=== PATIENT | male | born 1980 | race Caucasian/White ===

== ENCOUNTER 2020-07-19 16:36 | Emergency (ER) | payer SELFPAY ==
[~2020-07-19] VITALS: Ht 175.3 cm; Wt 136.3 kg
[2020-07-19 16:48] VITALS: BP 133/78
[2020-07-19] MEDS ORDERED: NAPR-514 PO (17:10)
[2020-07-19] MEDS ORDERED: AMOX500T PO (17:10)
--- NOTE | 2020-07-19 17:11 | PHYS DOC ---
Past History Past Medical History: Other Additional Past Medical Histor: HEART MURMUR Past Surgical History: No Surgical History Alcohol Use: Occasionally Adult General Chief Complaint Chief Complaint: DENTAL PROBLEM HPI HPI Patient is a 39-year-old male patient presenting to the ED today complaining of 5 out of 10 throbbing left upper gum dental pain, symptoms for 2 days. Patient reports history of dental infections. He states he is supposed to have surgical removal of the left lower wisdom tooth but he does not have medical or dental insurance and is unable to follow-up. He is requesting antibiotics. He states his been trying [id number] remedies with no relief. Review of Systems Review of Systems Constitutional: Denies fever or chills [] Eyes: Denies change in visual acuity, redness, or eye pain [] HENT: Reports left upper gum dental pain Musculoskeletal: Denies back pain or joint pain [] Integument: Denies rash or skin lesions [] Neurologic: Denies headache, focal weakness or sensory changes [] All other systems were reviewed and found to be within normal limits, except as documented in this note. Allergies Allergies Allergies Coded Allergies Type Severity Reaction Last Updated Verified No Known Drug Allergies 07/19/20 No Physical Exam Physical Exam Constitutional: Well developed, well nourished, no acute distress, non-toxic appearance. [] HENT: Normocephalic, atraumatic, bilateral external ears normal, oropharynx moist, no oral exudates, nose normal. [] Left wisdom tooth is decayed, no gum erythema, no swelling Skin: Warm, dry, no erythema, no rash. [] Back: No tenderness, no CVA tenderness. [] Extremities: No tenderness, no cyanosis, no clubbing, ROM intact, no edema. [] Neurologic: Alert and oriented X 3, normal motor function, normal sensory function, no focal deficits noted. [] Psychologic: Affect normal, judgement normal, mood normal. [] Current Patient Data Vital Signs Vital Signs Date Time Temp Pulse Resp B/P (MAP) Pulse Ox O2 Delivery O2 Flow Rate FiO2 07/19/20 16:48 97.4 64 18 133/78 (96) 97 Room Air EKG EKG [] Radiology/Procedures Radiology/Procedures [] Heart Score Risk Factors: Risk Factors: DM, Current or recent (<one month) smoker, HTN, HLP, family history of CAD, obesity. Risk Scores: Risk Factors: DM, Current or recent (<one month) smoker, HTN, HLP, family history of CAD, obesity. Course & Med Decision Making Course & Med Decision Making Pertinent Labs and Imaging studies reviewed. (See chart for details) This is a 39-year-old male patient with infected left wisdom tooth. He is supposed to have it surgically removed but does not have dental insurance to enable him follow-up with an oral surgeon. Discharged on amoxicillin and naproxen. Dragon Disclaimer Dragon Disclaimer This electronic medical record was generated, in whole or in part, using a voice recognition dictation system. Departure Departure: Impression: Primary Impression: Dental infection Disposition: DC HOME SELF CARE/HOMELESS Condition: STABLE Referrals: PCP,BERNARDO (PCP) follow up with your dentist in 1 week Patient Instructions: Dental Caries Additional Instructions: You have dental infection. Take the prescribed antibiotics until completed. Follow-up with your dentist in 1 week Scripts Naproxen (NAPROXEN) 500 Mg Tablet 1 TAB PO BID for pain, #20 TAB 0 Refills Prov: VENU BANGURA APRN 07/19/20 Amoxicillin (AMOXICILLIN) 500 Mg Tablet 1 TAB PO BID, #20 TAB Prov: VENU BANGURA APRN 07/19/20 VENU BANGURA APRN Jul 19, 2020 17:10
[2020-07-19] MEDS ORDERED: NAPROXEN 500 MG TABLET PO ONE (17:15)
[2020-07-19] MEDS ORDERED: AMOXICILLIN 250 MG CAPSULE PO ONE (17:15)
[2020-07-19] MEDS ORDERED: NAPROXEN 500 MG TABLET ONE (17:19)
[2020-07-19] MEDS ORDERED: AMOXICILLIN 250 MG CAPSULE ONE (17:19)
== END 2020-07-19 17:24 | disposition home or self-care (01) ==
LOC: ER 16:36
DX: K04.7 Periapical abscess without sinus (principal); K08.89 Other specified disorders of teeth and supporting structures
CPT/HCPCS: 99283

== ENCOUNTER 2021-10-06 17:34 | Emergency (ER) | payer SELFPAY ==
[~2021-10-06] VITALS: Ht 175.3 cm; Wt 136.3 kg
[~2021-10-06 17:34] MED LIST: AMOX500T PO; NAPR-514 PO
--- NOTE | 2021-10-06 19:43 | RAD ---
Single view chest dated 10/06/2021 7:38 PM: COMPARISON: 10/04/2004 Clinical Indication: Chest pain. Findings: Single upright portable exam of the chest was performed. Heart and mediastinal contours within normal limits. There are some prominent perihilar linear markings. No consolidation or pleural effusion. No pneumothorax. IMPRESSION: 1. Prominent perihilar linear markings, nonspecific. Consider noncardiogenic edema or atypical infect ion. Electronically signed by: Samuel Jamison MD (10/06/2021 7:41 PM) [facility]
[2021-10-06 20:05] LABS: BASO # 0.1 x10^3/uL (0.0-0.2); BASO % 1 % (0-3); EOS # 0.1 x10^3/uL (0.0-0.7); EOS % 2 % (0-3); HEMOGLOBIN 14.2 g/dL (13.0-17.5); LYMPH # 1.5 x10^3/uL (1.0-4.8); LYMPH % 17 % (24-48); MEAN CORPUSCULAR HEMOGLOBIN 31 pg (25-35); MEAN CORPUSCULAR HGB CONC 35 g/dL (31-37); MEAN CORPUSCULAR VOLUME 88 fL (79-100); MONO # 0.7 x10^3/uL (0.0-1.1); MONO % 7 % (0-9); NEUT # 6.8 x10^3uL (1.8-7.7); NEUT % 74 % (31-73); PLATELET COUNT 193 x10^3/uL (140-400); RED BLOOD COUNT 4.64 x10^6/uL (4.30-5.70); RED CELL DISTRIBUTION WIDTH 13.2 % (11.5-14.5); WHITE BLOOD COUNT 9.3 x10^3/uL (4.0-11.0)
--- NOTE | 2021-10-06 20:07 | PHYS DOC ---
Past History Past Medical History: Other Additional Past Medical Histor: HEART MURMUR (HERMAN KIRKLAND APRN) Past Surgical History: No Surgical History (HERMAN KIRKLAND APRN) Alcohol Use: None (HERMAN KIRKLAND APRN) General Adult EDM: Chief Complaint: CHEST PAIN HPI: HPI: Patient is a 40-year-old male presents with chest pain that keeps coming and going since April. Patient states that pain is worse with exertion. Patient's denying any complaints at this time. Denies nausea/vomiting. Denies shortness of breath. History of heart murmur. (HERMAN KIRKLAND APRN) Review of Systems: Review of Systems: ROS At least 10 ROS systems have been reviewed and are negative except as documented in the HPI. General: Negative except as outlined in HPI above. Skin: Negative except as outlined in HPI above. HEENT: Negative except as outlined in HPI above. Neck: Negative except as outlined in HPI above. Respiratory: Negative except as outlined in HPI above.. Cardiovascular: Negative except as outlined in HPI above. Abdomen: Negative except as outlined in HPI above. : Negative except as outlined in HPI above. Back/MSK: Negative except as outlined in HPI above. Neuro: Negative except as outlined in HPI above. Psych: Negative except as outlined in HPI above. (HERMAN KIRKLAND APRN) Allergies: Allergies: Allergies Coded Allergies Type Severity Reaction Last Updated Verified No Known Drug Allergies 07/19/20 No (HERMAN KIRKLAND APRN) Physical Exam: PE: Constitutional: Well developed, well nourished, no acute distress, non-toxic a ppearance. [] HENT: Normocephalic, atraumatic, bilateral external ears normal, oropharynx moist, no oral exudates, nose normal. [] Eyes: PERRLA, EOMI, conjunctiva normal, no discharge. [] Neck: Normal range of motion, no tenderness, supple, no stridor. [] Cardiovascular:Heart rate regular rhythm, no murmur [] Lungs & Thorax: Bilateral breath sounds clear to auscultation [] Abdomen: Bowel sounds normal, soft, no tenderness, no masses, no pulsatile masses. [] Skin: Warm, dry, no erythema, no rash. [] Back: No tenderness, no CVA tenderness. [] Extremities: No tenderness, no cyanosis, no clubbing, ROM intact, no edema. [] Neurologic: Alert and oriented X 3, normal motor function, normal sensory function, no focal deficits noted. [] Psychologic: Affect normal, judgement normal, mood normal. [] (HERMAN KIRKLAND APRN) Current Patient Data: Vital Signs: Vital Signs Date Time Temp Pulse Resp B/P (MAP) Pulse Ox O2 Delivery O2 Flow Rate FiO2 10/06/21 19:21 98.2 87 18 156/67 (96) 97 Room Air (HERMAN KIRKLAND APRN) EKG: EKG: [] (HERMAN KIRKLAND APRN) Radiology/Procedures: Radiology/Procedures: []Single view chest dated 10/06/2021 7:38 PM: COMPARISON: 10/04/2004 Clinical Indication: Chest pain. Findings: Single upright portable exam of the chest was performed. Heart and mediastinal contours within normal limits. There are some prominent perihilar linear markings. No consolidation or pleural effusion. No pneumothorax. IMPRESSION: 1. Prominent perihilar linear markings, nonspecific. Consider noncardiogenic edema or atypical infection. Electronically signed by: Samuel Jamison MD (10/06/2021 7:41 PM) [facility] (HERMAN KIRKLAND APRN) Heart Score: C/O Chest Pain: Yes HEART Score for Chest Pain: HEART Score for Chest Pain Response (Comments) Value History Slighlty/Non-Suspicious 0 ECG Normal 0 Age < 45 0 Risk Factors 1 or 2 Risk Factors 1 Troponin < Normal Limit 0 Total 1 Risk Factors: Risk Factors: DM, Current or recent (<one month) smoker, HTN, HLP, family history of CAD, obesity. Risk Scores: Score 0 - 3: 2.5% MACE over next 6 weeks - Discharge Home Score 4 - 6: 20.3% MACE over next 6 weeks - Admit for Clinical Observation Score 7 - 10: 72.7% MACE over next 6 weeks - Early Invasive Strategies (HERMAN KIRKLAND APRN) Course & Med Decision Making: Course & Med Decision Making Pertinent Labs and Imaging studies reviewed. (See chart for details) [] Nontoxic-appearing, 40-year-old male presents with remittent chest pain, since April. Pain is always with exertion. Patient denies seeing his PCP for this problem. Patient is denying any complaints at this time. No shortness of breath, no chest pain, no recent illness, no cough. Work-up in ER consisted of CBC, CMP, troponin, BNP, urinalysis, chest x-ray. Chest x-ray is unremarkable. All labs unremarkable. Heart score of 1. Troponin is negative. Advised patient to call PCP tomorrow make a follow-up appointment to get further testing such as echo and stress test. Patient agrees to discharge plan. Discussed return precautions in length. Patient verbalized understanding of discharge instructions. (HERMAN KIRKLAND APRN) Course & Med Decision Making Did not see or evaluate patient. Did not discuss patient with JOB SPOTTER. Generally agree with JOB SPOTTER's work-up and disposition per note (SHANTHI DICK MD) Dragon Disclaimer: Dragon Disclaimer: This electronic medical record was generated, in whole or in part, using a voice recognition dictation system. (HERMAN KIRKLAND APRN) Departure Departure: Impression: Primary Impression: Chest pain Qualified Codes: R07.9 - Chest pain, unspecified Disposition: HOME / SELF CARE / HOMELESS Condition: STABLE Referrals: LAUREL CHAUHAN APRN (PCP) Patient Instructions: Angina Additional Instructions: You were seen in the emergency room for exertional angina. You need to make a follow-up appoint with your PCP. I will call him tomorrow make an appointment to have further testing done such as a stress test and echocardiogram. Please return to the emergency room if you have worsening symptoms or concerns such as chest pain, shortness of breath. EMERGENCY DEPARTMENT GENERAL DISCHARGE INSTRUCTIONS Thank you for coming to [facility] (ED) today and trusting us with you care. We trust that you had a positivie experience in our Emergency Department. If you wish to speak to the department management, you may call the director at [phone]. YOUR FOLLOW UP INSTRUCTIONS ARE FOLLOWS: 1. Do you have a private Doctor? If you do not have a private doctor, please ask for a resource list of physicians or clinics that may be able to assist you with follow up care. 2. The Emergency Physician has interpreted your x-rays. The X-Ray specialist will also review them. If there is a change in the findings, you will be notified in 48 hours when at all possible. 3. A lab test or culture has been done, your results will be reviewed and you will be notified if you need a change in treatment. ADDITIONAL INSTRUCTIONS AND INFORMATION: 1. Your care today has been supervised by a physician who is specially trained in emergency care. Many problems require more than one evaluation for a complete diagnosis and treatment. We recommend that you schedule your follow up appointment as recommended to ensure complete treatment of you illness or injury. If you are unable to obtain follow up care and continue to have a problem, or if your condition worsens, we recommend that you return to the ED. 2. We are not able to safely determine your condition over the phone nor are we able to give sound medical advice over the phone. For these safety reasons, if you call for medical advice we will ask you to come to the ED for further evaluation. 3. If you have any questions regarding these discharge instructions please call the ED at [phone]. SAFETY INFORMATION: In the interest of safety, wellness, and injury prevention; we encourage you to wear your sealbelt, if you smoke; quite smoking, and we encourage family to use a protective helmet for bicycling and other sporting events that present an increased risk for head injury. IF YOUR SYMPTOMS WORSEN OR NEW SYMPTOMS DEVELOP, OR YOU HAVE CONCERNS ABOUT YOUR CONDITION; OR IF YOUR CONDITION WORSENS WHILE YOU ARE WAITING FOR YOUR FOLLOW UP APPOINTMENT; EITHER CONTACT YOUR PRIMARY CARE DOCTOR, THE PHYSICIAN WHOSE NAME AND NUMBER YOU WERE GIVEN, OR RETURN TO THE ED IMMEDIATELY. HERMAN KIRKLAND APRN October 06, 2021 20:07 SHANTHI DICK MD October 06, 2021 22:08
[2021-10-06 20:25] LABS: CALCIUM 9.2 mg/dL (8.5-10.1); CREATININE 0.4 mg/dL (0.7-1.3); GFR 238.3; POTASSIUM 4.9 mmol/L (3.5-5.1)
[2021-10-06 21:57] VITALS: BP 155/80
--- NOTE | 2021-10-07 01:28 | EKG ---
[address] [address] Test Date: 2021-10-06 Test Time: 17:40:55 Pat Name: DAVID SCANLON Department: Room: Gender: M Cms Expert: EMELYN : 1980 Requested By: HERMAN KIRKLAND Order Number: [id number] Reading MD: Measurements Intervals Logan Rate: 91 P: 146 ME: 154 QRS: -3 QRSD: 114 T: 129 QT: 378 QTc: 467 Interpretive Statements SINUS RHYTHM LEFT ATRIAL ABNORMALITY LEFTWARD AXIS R-S TRANSITION ZONE IN V LEADS DISPLACED TO THE RIGHT INCOMPLETE RIGHT BUNDLE BRANCH BLOCK CONSIDER LEFT VENTRICULAR HYPERTROPHY ST & T ABNORMALITY, CONSIDER LATERAL ISCHEMIA OR LEFT VENTRICULAR STRAIN ABNORMAL ECG RI6.02 No previous ECG available for comparison
== END 2021-10-06 21:55 | disposition home or self-care (01) ==
LOC: ER 17:34
DX: R07.89 Other chest pain (principal)
CPT/HCPCS: 36415; 71045; 80048; 83880; 84484; 85025; 93005; 99285